=== PATIENT | male | born 1990 | race Hispanic/Latino ===

== ENCOUNTER 2023-07-28 02:06 | Emergency (ER) | payer SELFPAY ==
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
--- NOTE | ~2023-07-28 | CT_ITS ---
EXAMINATION: CT facial & cervical spine wo DATE: 07/28/2023 03:41 INDICATION: Head injury. TECHNIQUE: Computed tomography (CT) of the maxillofacial region and cervical spine was performed with out intravenous contrast. Automated exposure control and iterative reconstruction technique were empl oyed. The dose-length product was 568.40 mGy-cm. COMPARISON: None FINDINGS: MAXILLOFACIAL CT: There is left anterolateral scalp soft tissue swelling. There is right cheek soft tissue swelling. Th ere is soft tissue swelling of the nose. There are fractures of the nasal bones and nasal septum. The re is mucosal thickening in the paranasal sinuses. The mastoid air cells are normal. CERVICAL SPINE CT: Bone alignment is normal. Vertebral body heights are normal. At C7-T1, there is mild bilateral facet joint osteoarthritis. No neural foraminal stenosis or central canal stenosis. IMPRESSION: 1. Fractures of the nasal bones and nasal septum. Reviewed, dictated and finalized at location E.
--- NOTE | ~2023-07-28 | CT_ITS ---
EXAMINATION: CT brain wo con DATE: 07/28/2023 03:41 INDICATION: Head injury. TECHNIQUE: Computed tomography (CT) of the head was performed without intravenous contrast. The mA wa s adjusted according to patient size. Iterative reconstruction technique was employed. The dose-lengt h product was 681.00 mGy-cm. COMPARISON: None FINDINGS: There is no intracranial hemorrhage, acute infarction, or abnormal intracranial mass lesion . The ventricles are normal in size. There is posterior scalp soft tissue swelling. The orbits are no rmal. There are fractures of the nasal bones and nasal septum. There is mild mucosal thickening in th e paranasal sinuses. The mastoid air cells are normal. IMPRESSION: 1. Normal brain. 2. Fractures of the nasal bones and nasal septum. Reviewed, dictated and finalized at location E.
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
[2023-07-28 02:14] VITALS: BP 128/89; PULSE 99; RESP 29; TEMP 36.9; O2SAT 97
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
[2023-07-28] MEDS: IBUPROFEN 600 MG TABLET PO (03:29)
[2023-07-28] MEDS: HYDROcodone/acetaminophen (*CRX) 5-325 MG TABLET 1 TAB PO (03:29)
[2023-07-28 03:58] VITALS: PULSE 77; RESP 16; O2SAT 99
[2023-07-28 04:30] VITALS: BP 127/89; PULSE 79; RESP 23; O2SAT 99
[2023-07-28 08:18] VITALS: BP 126/94; PULSE 70; RESP 19; O2SAT 100
== END 2023-07-28 08:19 | disposition home or self-care (01) ==
PROVIDERS: Emergency Provider Student in an Organized Health Care Education/Training Program
DX: S02.2XXA Fracture of nasal bones, initial encounter for closed fracture (principal); S00.511A Abrasion of lip, initial encounter; X99.8XXA Assault by other sharp object, initial encounter
CPT/HCPCS: 70450; 70486; 71045; 72125; 73010; 99284; A9270

== ENCOUNTER 2023-08-06 00:57 | Day surgery (SDC) | payer SELFPAY ==
--- NOTE | 2023-08-05 08:52 | PC.NURSE ---
PRE-OP INSTRUCTIONS, PLEASE READ CAREFULLY Report to the Outpatient Waiting Room, entrance under the green pavilion located off [facility], at time _1PM_ on date _08/06/23_. Planned Procedure Time: _3PM_. Time changes happen often and if your time is changed the preop area will call you the afternoon before. - You and your visitor will be asked to self-screen and do not enter if you have any COVID symptoms. - A mask is optional within the hospital at this time. Patients may have clear liquids (water, carbonated beverages, clear teas, apple juice) until 3 hours prior to surgery (1200 NOON) with a maximum of 20 ounces. - No food from midnight until time of surgery Take the following medications with a SIP of water the morning of surgery: _TYLENOL IF NEEDED_ DO NOT STOP ANY OF YOUR OTHER PRESCRIPTION MEDICATIONS PRIOR TO SURGERY ?EXCEPT THE FOLLOWING Medications to discontinue - _IBUPROFEN INSTRUCTED BY DR. MARTINEZ_ Please no make-up, nail saudi arabian, hairspray, perfume, deodorant, or body powder the day of surgery. No jewelry (including any body piercings) or valuables the day of surgery, leave them at home. Please take a shower or bath the night before, or the morning of, surgery with an antibacterial soap. Wear comfortable, loose fitting clothing. - Jewelry must be removed prior to entering the operating room. Rings and piercings that are not removed may be cut off. - The hospital will not accept responsibility for valuables. - Please leave all valuables, including medications, at home the day of surgery. If you are going home after surgery, a licensed local truck driver must drive you home. - NO public transportation without another adult if you receive anesthesia. - We recommend that an adult stay with you for 24 hours following discharge. - We also recommend that you do not drive, make important decision, drink alcoholic beverages, or take any drugs that were not prescribed by your health care provider for at least 24 hours after your discharge time. Follow any additional instructions given to you from your surgeon. If you or anyone in your household have experienced Covid symptoms in the past week, please notify your surgeon or the nurse liaison at the phone number below for possible testing. Telephone instructions given to _PATIENT_and asked if any additional questions and then verbalized understanding. Patient advised to call surgeon office or pre surgery nurse liaison [phone] if any additional questions.
[2023-08-05 09:48] VITALS: BMI 26.0
--- NOTE | 2023-08-05 12:37 | P.HP_ITS ---
H&P: HPI History of Present Illness Date/Time: 08/05/23 12:37 Chief Complaint: nasal bone fracture Narrative: planned procedure urgent Review of Systems Review of Systems: All systems reviewed & are unremarkable except as noted in HPI and below [facility] Social History Social History (Updated 08/01/23 @ 16:32 by Kierra Moody [facility]) Smoking status: Former smoker Tobacco type: cigarettes Second hand tobacco smoke exposure: No Additional smoking assessment comments: STATES SMOKINE FEW CIGARETTES MONTH FOR 3-4YRS, QUIT 2021 Alcohol intake: never Substance use: never Substance use type: does not use Additional living arrangements comments: LIVES WITH CO-WORKERS Spiritual care concerns: No Meds Home Medications and Allergies Home Medications Medication Instructions Recorded Confirmed Type acetaminophen 500 mg tablet 500 mg PO Q6H PRN pain #30 tabs 07/28/23 08/05/23 Rx ibuprofen 400 mg tablet 400 mg PO Q6H PRN pain #30 tabs 07/28/23 08/05/23 Rx Allergies Allergy/AdvReac Type Severity Reaction Status Date / Time No Known Allergies Allergy Verified 08/05/23 09:46 Exam Narrative: left concave right convex septum is bent to the left Assessment and Plan Assessment and plan (1) Nasal bone fracture: Code(s): S02.2XXA - Fracture of nasal bones, initial encounter for closed fracture Status: Acute Assessment and Plan: plan or closed reduction nasal bone fracture needle least an hour it is going to be challenging. May need endoscope as well. Risks discussed bleeding infection damage to surrounding structures change in vision CSF leak brain brain damage total blindness need for further procedures failure to resolve symptoms. Routine follow-up time off work time off school inherent risk of narcotic use.
[2023-08-06] VITALS (8 sets, daily range): BP systolic 85–133; BP diastolic 65–98; PULSE 62–78; RESP 12–20; TEMP 36.1–36.4; O2SAT 98–100
--- NOTE | 2023-08-06 07:20 | WPDHPUPDATE1 ---
History and Physical Update Update Date/Time: 08/06/23 07:20 History and Physical has been reviewed, including an updated exam of the patient. There are NO changes in the patient's condition. Risks, benefits, and alternatives have been discussed and questions answered. Patient agrees to proceed with procedure.
--- NOTE | 2023-08-06 13:10 | SUR.PREOP ---
DR VALENTINO NOTIFIED THAT PATIENT HAD TWO GLASSES OF MILK THIS MORNING AT 8AM. MEDICATION ORDERS RECEIVED TO ADMINISTER TO PATIENT WHEN IV ACCESS IS ACHIEVED.
--- NOTE | 2023-08-06 13:30 | SUR.PREOP ---
WALLCOVERING HANGER #[id number] USED TO TELL PATIENT ABOUT PLAN FOR THE DAY, PREOP MEDICATIONS AND IV START. PATIENT CURRENTLY HAS NO QUESTIONS.
[2023-08-06] MEDS: LACTATED RINGERS 1,000 ML 30 ML IV CONT ×2 (13:40→15:58)
[2023-08-06] MEDS: METOCLOPRAMIDE HCL INJ 10 MG/2 ML VIAL IV PUSH (14:07)
[2023-08-06] MEDS: ONDANSETRON INJ 4 MG/2 ML VIAL IV PUSH (14:07)
[2023-08-06] MEDS: FAMOTIDINE 20 MG/2 ML VIAL IV PUSH (14:08)
[2023-08-06] MEDS: ACETAMINOPHEN 500 MG TABLET 1000 MG PO (14:12)
--- NOTE | 2023-08-06 14:49 | P.PNAN_ITS ---
Anes - Initial Pre Proc Eval Procedure: Operation Date: 08/06/23 15:00 Proposed Procedures p Closed Reduction Nasal Bone Fracture - Tyler Plata MD Date/Time: 08/06/23 14:49 Surgeon: Tyler Plata MD Pre Op Diagnosis: nasal bone fracture Patient Data Age: 32 Gender: M Height: 1.71 m Weight: 74.5 kg Last Vital Signs Temp 36.4 C 08/06/23 12:54 Pulse 78 08/06/23 12:54 Resp 18 08/06/23 12:54 BP 128/90 08/06/23 12:54 Pulse Ox 99 08/06/23 12:54 O2 Del Method Room Air 08/06/23 12:54 Allergies Allergy/AdvReac Type Severity Reaction Status Date / Time No Known Allergies Allergy Verified 08/06/23 13:08 Home Medications Medication Instructions Recorded Confirmed Type acetaminophen 500 mg tablet 500 mg PO Q6H PRN pain #30 tabs 07/28/23 08/06/23 Rx ibuprofen 400 mg tablet 400 mg PO Q6H PRN pain #30 tabs 07/28/23 08/06/23 Rx Patient hx anesthesia problems: none Family hx anesthesia problems: none Results Review: All pre-operative results and documents have been reviewed as part of the pre- operative evaluation. [facility] Social History Social History Smoking status: Former smoker Tobacco type: cigarettes Second hand tobacco smoke exposure: No Additional smoking assessment comments: STATES SMOKINE FEW CIGARETTES MONTH FOR 3-4YRS, QUIT 2021 Alcohol intake: never Substance use: never Substance use type: does not use Additional living arrangements comments: LIVES WITH CO-WORKERS Spiritual care concerns: No Anes - Eval Final PreProcedure Day of Procedure 08/06/23 14:49 Patient weight: normal Heart: regular rate and rhythm Lungs: clear to auscultation Neurological: alert and oriented Last oral intake: >/= 8 hours (milk 8am) ASA classification: II Emergent: no Anesthetic plan: proceed Anesthesia type and monitoring: general ETT and standard monitoring Results Review: All pre-operative results and documents have been reviewed as part of the pre- operative evaluation. Informed Consent: The patient's anesthetic plan and its attendant risks and benefits were discussed with the patient/family/POA. Questions were solicited and answers provided to the satisfaction of the patient/family/POA.
[2023-08-06] MEDS: ceFAZolin 2 GM/D5W 50 ML 2 GM/50 ML BAG IVPB (15:01)
[2023-08-06] MEDS: OXYMETAZOLINE HCL 0.05% NAS 15 ML BTL (*BKC) 1 SPRAY NASAL (15:15)
[2023-08-06] MEDS: MUPIROCIN 2% OINT 22 GM TUBE 1 APPLIC EACH NARE (15:30)
[2023-08-06] MEDS: fentaNYL CITRATE INJ (*CRX) 100 MCG/2 ML VIAL 25 MCG IV PUSH ×2 (16:35→17:03)
--- NOTE | 2023-08-06 16:46 | P.OP_ITS ---
Procedure Note - Detailed Date of Procedure 08/06/23 Pre-op Diagnosis nasal bone fracture Post-op Diagnosis Same Procedure Performed Closed reduction nasal bone fracture Surgeon Tyler Plata MD Anesthesia General Indications see above Findings comminuted nasal bone fracture septal fracture was able to reduce the nasal fracture put Malloy splints in to hold everything in place. Minimal bleeding left was outfractured right infractured Description of Procedure patient identified consent verified preop. Patient brought operating. Time- out performed. General anesthesia induced endotracheal tube secured. Patient prepped draped positioned procedure confirmed 2nd time-out performed. Afrin- soaked pledgets placed for 5 minutes then removed. [place] elevator inserted into the nose nasal bones fractured left outfracture right infractured. The septum CT moving so Malloy splints were placed sutured in place with 3-0 mattress nylon suture. The nose looked excellent taped then Aquaplast and tape was placed. Patient tolerated everything very very well blood loss about 10 cc. I performed all dictated portions of procedure no complication care the patient given Anesthesiology. Estimated Blood Loss 10 Drains No Packing No Pathology None sent Complications No immediate complications Condition Stable Disposition PACU [facility] Billing Surgery - Charge Forward: Surgery Billing
== END 2023-08-06 18:03 | disposition home or self-care (01) ==
PROVIDERS: Visit Provider Otolaryngology
PROC: 0NSBXZZ Reposition Nasal Bone, External Approach (ICD-10-PCS; CPT 21315; principal; 2023-08-06 15:00)
DX: S02.2XXA Fracture of nasal bones, initial encounter for closed fracture (principal); Y04.2XXA Assault by strike against or bumped into by another person, initial encounter; Z87.891 Personal history of nicotine dependence
CPT/HCPCS: 21320; A9270; J0330; J0690; J1100; J2250; J2405; J2704; J2765; J3010; J7120